=== PATIENT | female | born 1970 | race Caucasian/White ===

== ENCOUNTER → 2025-05-16 | Outpatient (CLI) | payer MEDICAID, SELFPAY ==
--- NOTE | 2025-05-16 10:22 | XR_ITS ---
EXAMINATION: Thoracic spine 3 views TECHNIQUE: AP lateral, lateral upper dorsal spine 3 views Date and time: May 16, 2025, 10:50 a.m., comparison December 24, 2020 INDICATIONS: Upper back pain 8 years. FINDINGS: Prominent osteopenia Upper thoracic levoscoliosis 8 degrees Thoracic dextroscoliosis 9 degrees Mild diffuse thoracic disc narrowing No thoracic fracture Mild thoracic spondylosis IMPRESSION: Scoliosis as above Mild diffuse thoracic degenerative disc disease
--- NOTE | 2025-05-16 10:22 | XR_ITS ---
EXAMINATION: Cervical spine, 5 views Technique: Cervical spine AP, AP odontoid, lateral, bilateral obliques, 5 views Exam date and time: May 16, 2025, 10:40 a.m. INDICATIONS: Neck pain beginning 8 years ago. FINDINGS: Comparison December 24, 2020 Reversal normal cervical lordosis. Moderate disc narrowing C5-C6, C6-C7 Mild neural foraminal stenosis C5-C6, moderate neural foraminal stenosis C6-C7 No fracture Intact odontoid IMPRESSION: Moderate degenerative disc disease C5-C6, C6-C7 with neuroforaminal stenosis as above
== END | disposition home or self-care (01) ==
LOC: CDIM 09:49
PROVIDERS: PCP Nurse Practitioner Family; Referring Provider Nurse Practitioner Family; Visit Provider Nurse Practitioner Family
DX: M50.322 Other cervical disc degeneration at C5-C6 level (principal); M48.02 Spinal stenosis, cervical region; M51.34 Other intervertebral disc degeneration, thoracic region; M41.84 Other forms of scoliosis, thoracic region
CPT/HCPCS: 72050; 72072